=== PATIENT | female | born 1950 | race Caucasian/White ===

== ENCOUNTER → 2019-01-04 | Outpatient (CLI) | payer OTHER ==
[~2019-01-04] MED LIST: AZMACORT20 G1 INH; CALCIUM + D SO1 EACH PO; CITRUCEL CAPLET1 TA1 PO; CITRUCEL500 MG PO; COLACE 100 MG100 MG; CRESTOR20 MG PO; FLAX OIL1000 MG PO; FLEET ENEMA EX230 ML; IBUPROFEN 600600 M1 PO; LEXAPRO 10 MG T10 MG PO; MAGOX 400400 MG PO; ROBITUSSIN100 MG/53 PO; VALTREX 500 MG500 M1 PO; VITAMIN D1000 UNI1 PO
== END ==
LOC: CAT 09:56
DX: Z13.6 Encounter for screening for cardiovascular disorders (principal); E78.00 Pure hypercholesterolemia, unspecified; I25.10 Atherosclerotic heart disease of native coronary artery without angina pectoris

== ENCOUNTER → 2021-03-28 | Outpatient (CLI) | payer OTHER, MEDICARE | LOC: RAD 16:17 | PROVIDERS: ATTEND Nurse Practitioner | DX: M25.461 Effusion, right knee (principal); M25.561 Pain in right knee ==